=== PATIENT | male | born 1950 | race African-American/Black ===

== ENCOUNTER 2024-09-02 13:21 | Emergency (ER) | payer BC ==
[~2024-09-02] VITALS: Ht 175.3 cm; Wt 91.0 kg
[2024-09-02 13:32] VITALS: O2SAT 98
[2024-09-02] MEDS: KETOROLAC 30MG/ML VIAL IM ONE (16:56)
[2024-09-02] MEDS ORDERED: CYCL5TAB3 MT (18:38)
[2024-09-02] MEDS ORDERED: IBUP-2030 MT (18:38)
[2024-09-02 18:48] VITALS: BP 148/91; PULSE 80; RESP 18; TEMP 36.8; O2SAT 98
[2024-09-02] MEDS: CYCLOBENZAPRINE 10MG TABLET PO ONE (18:48)
== END 2024-09-02 19:15 | disposition home or self-care (01) ==
LOC: ER 13:21
DX: M50.30 Other cervical disc degeneration, unspecified cervical region (principal); M25.512 Pain in left shoulder; M54.6 Pain in thoracic spine; E04.1 Nontoxic single thyroid nodule; E11.9 Type 2 diabetes mellitus without complications; I10 Essential (primary) hypertension
CPT/HCPCS: 99285; 72125; 72070; 73030; 96372; J1885